=== PATIENT | female | born 2000 | race Caucasian/White ===

== ENCOUNTER 2025-04-19 10:14 | Emergency (ER) | payer BC ==
[~2025-04-19] VITALS: Ht 160 cm; Wt 42.2 kg
[2025-04-19] MEDS ORDERED: LIDOCAINE 1%-EPI 1:100,000 20 ML VIAL ONE (10:35)
[2025-04-19] MEDS ORDERED: TDAP [DIPH/PERTUSSIS/TET] 0.5 ML VIAL IM ONE (10:51)
[2025-04-19] MEDS: TDAP [DIPH/PERTUSSIS/TET] 0.5 ML VIAL IM ONE (10:53)
[2025-04-19] MEDS: LIDOCAINE 1%-EPI 1:100,000 50 ML VIAL IJ ONE (10:57)
[2025-04-19 12:14] VITALS: BP 135/80; TEMP 98; O2SAT 99
== END 2025-04-19 12:15 | disposition home or self-care (01) ==
LOC: ER 10:14
DX: S01.81XA Laceration without foreign body of other part of head, initial encounter (principal); W01.0XXA Fall on same level from slipping, tripping and stumbling without subsequent striking against object, initial encounter; Y93.89 Activity, other specified; Y92.89 Other specified places as the place of occurrence of the external cause; Y99.8 Other external cause status
CPT/HCPCS: 12011; 90471; 90715; 99283; A4223; J3490